=== PATIENT | male | born 1980 | race Caucasian/White ===

== ENCOUNTER 2016-03-15 13:25 | Emergency (ER) | payer OTHER ==
[2016-03-15 13:32] VITALS: O2SAT 97
[2016-03-15] MEDS ORDERED: NS 1,000 ML IV ONE (14:07)
[2016-03-15 14:24] LABS: COLOR YELLOW; LEUKOCYTE ESTERASE,URINE NEGATIVE (NEGATIVE); NITRITE,URINE NEGATIVE (NEGATIVE)
[2016-03-15 14:55] LABS: % IMMATURE GRANULYOCYTES 0.3 % (0.0-1.1); ABSOLUTE IMMATURE GRANULOCYTES 0.03 10^3/uL (0.00-0.10); ADD DIFF? NO; ADD MORPH? NO; ADD SCAN? NO; ATYPICAL LYMPHOCYTE FLAG 0 (0-99); FRAGMENT RBC FLAG 0 (0-99); HEMATOCRIT 45.8 % (40.0-51.0); LEFT SHIFT FLG 0 (0-99); LIPEMIA HEMOLYSIS FLAG 90 (0-99); MEAN CELL HEMOGLOBIN 31.3 pg (27.9-34.1); MEAN CELL HEMOGLOBIN CONCENTR. 34.9 g/dL (32.4-36.7); MEAN CELL VOLUME 89.5 fL (81.5-99.8); PLATELET CLUMPS FLAG 10 (0-99); PLATELET COUNT 228 10^3/uL (150-400); RED BLOOD CELL COUNT 5.12 10^6/uL (4.40-6.38)
[2016-03-15 15:05] LABS: ANION GAP 13 mEq/L (8-16); CALCIUM 9.2 mg/dL (8.5-10.4); CARBON DIOXIDE 26 mEq/l (22-31); CHLORIDE 102 mEq/L (97-110); CREATININE 0.9 mg/dL (0.7-1.3); GLOMERULAR FILTRATION RATE > 60; GLUCOSE 94 mg/dL (70-100); POTASSIUM 4.5 mEq/L (3.5-5.2); SODIUM 141 mEq/L (134-144)
[2016-03-15] MEDS ORDERED: IOPAMIDOL (ISOVUE-300) 50 ML VIAL IV ONE (15:16)
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
[2016-03-15 15:53] VITALS: RESP 18; TEMP 98.6
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
[2016-03-15 17:02] VITALS: BP 116/73; PULSE 83
== END 2016-03-15 17:02 | disposition home or self-care (01) ==
DX: S20.221A Contusion of right back wall of thorax, initial encounter (principal); S40.021A Contusion of right upper arm, initial encounter; S80.11XA Contusion of right lower leg, initial encounter; V28.0XXA Motorcycle driver injured in noncollision transport accident in nontraffic accident, initial encounter; Y92.410 Unspecified street and highway as the place of occurrence of the external cause; Y99.8 Other external cause status; Y93.55 Activity, bike riding
CPT/HCPCS: 82947-QW; Q9967

== ENCOUNTER 2016-10-17 16:47 | Emergency (ER) | payer OTHER ==
[2016-10-17] MEDS ORDERED: NS 1,000 ML IV ONE ×2 (17:24→18:24)
--- NOTE | 2016-10-17 17:24 | EDPHY ---
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 of the great toe distal phalanx. Impression: There is no acute osseous abnormality identified. Findings were discussed with ANGELES PRATHER MD at 19:23, on 10/17/2016. All x-rays reviewed by me and appeared to be normal. No evidence for rib fractures or pneumothorax. There is possibly a chip off the distal phalanx left great toe. Procedures: IV normal saline with initial target [address] rash on his back is clean ED Course/Re-evaluation: Re-evaluation 6:25 p.m. patient is stable. He and I discussed imaging and lab results. We discussed treatment plan including criteria for return importance of follow-up and further evaluation. Patient is unsure whether he can walk. We discussed that he really needs to be able to walk before he can be discharged Re-evaluation 7:35 p.m.. Patient is stable. I push on his distal right fibula but he does not have particular tenderness there. He has swelling and effusion to the left knee. Knee immobilizer is placed on the left leg. Post knee immobilizer evaluation shows good anatomic position and distal motor vascular sensitivity to be intact Patient has known crutches which is brings into the ED. Re-evaluation 8:40 p.m.. Knee immobilizer is on left leg. He is ambulatory with crutches. He feels well to go home. Patient and I discussed imaging and lab results. We discussed treatment plan including criteria for return importance of follow-up and further evaluation. He expresses understanding and agreement Differential Diagnosis: I considered long bone fractures. I suspect that the patient has ligamental injuries to the left knee. No osseous abnormalities however there is a joint effusion. I considered rib fractures and pneumothorax as well - Data Points Laboratory Results: Laboratory Results 10/17/16 17:20 10/17/16 17:20 10/17/16 10/17/16 10/17/16 18:25 17:20 17:20 WBC RBC Hgb Hct MCV MCH MCHC RDW Plt Count MPV Neut % (Auto) Lymph % (Auto) [place] % (Auto) Eos % (Auto) Baso % (Auto) Nucleat RBC Rel Count Absolute Neuts (auto) Absolute Lymphs (auto) Absolute Monos (auto) Absolute Eos (auto) Absolute Basos (auto) Absolute Nucleated RBC Immature Gran % Immature Gran # PT 12.6 SEC SEC (12.0-15.0) INR 0.95 (0.83-1.16) APTT 23.8 SEC SEC (23.0-38.0) Sodium 145 mEq/L H mEq/L (134-144) Potassium 3.9 mEq/L mEq/L (3.5-5.2) Chloride 106 mEq/L mEq/L (97-110) Carbon Dioxide 20 mEq/l L mEq/l (22-31) Anion Gap 19 mEq/L H mEq/L (8-16) BUN 21 mg/dL mg/dL (7-23) Creatinine 1.1 mg/dL mg/dL (0.7-1.3) Estimated GFR > 60 Glucose 80 mg/dL mg/dL (70-100) Calcium 10.5 mg/dL H mg/dL (8.5-10.4) Creatine Kinase 270 IU/L H IU/L (0-224) CK-MB (CK-2) Fraction 1.84 ng/mL ng/mL (0.00-3.19) CK-MB (CK-2) % 0.7 % % (0.0-4.0) Creatine Kinase Interp NEGATIVE (NEGATIVE) 10/17/16 17:20 WBC 13.19 10^3/uL H 10^3/uL (3.80-9.50) RBC 5.22 10^6/uL 10^6/uL (4.40-6.38) Hgb 16.0 g/dL g/dL (13.7-17.5) Hct 46.7 % % (40.0-51.0) MCV 89.5 fL fL (81.5-99.8) MCH 30.7 pg pg (27.9-34.1) MCHC 34.3 g/dL g/dL (32.4-36.7) RDW 12.7 % % (11.5-15.2) Plt Count 270 10^3/uL 10^3/uL (150-400) MPV 10.6 fL fL (8.7-11.7) Neut % (Auto) 76.4 % H % (39.3-74.2) Lymph % (Auto) 15.2 % % (15.0-45.0) [place] % (Auto) 7.4 % % (4.5-13.0) Eos % (Auto) 0.2 % L % (0.6-7.6) Baso % (Auto) 0.4 % % (0.3-1.7) Nucleat RBC Rel Count 0.0 % % (0.0-0.2) Absolute Neuts (auto) 10.09 10^3/uL H 10^3/uL (1.70-6.50) Absolute Lymphs (auto) 2.00 10^3/uL 10^3/uL (1.00-3.00) Absolute Monos (auto) 0.97 10^3/uL H 10^3/uL (0.30-0.80) Absolute Eos (auto) 0.03 10^3/uL 10^3/uL (0.03-0.40) Absolute Basos (auto) 0.05 10^3/uL 10^3/uL (0.02-0.10) Absolute Nucleated RBC 0.00 10^3/uL 10^3/uL (0-0.01) Immature Gran % 0.4 % % (0.0-1.1) Immature Gran # 0.05 10^3/uL 10^3/uL (0.00-0.10) PT INR APTT Sodium Potassium Chloride Carbon Dioxide Anion Gap BUN Creatinine Estimated GFR Glucose Calcium Creatine Kinase CK-MB (CK-2) Fraction CK-MB (CK-2) % Creatine Kinase Interp Medications Given: Discontinued Medications Sodium Chloride (Ns) 1,000 mls @ 0 mls/hr IV ONCE ONE; Wide Open PRN Reason: Protocol Stop: 10/17/16 17:25 Last Admin: 10/17/16 17:51 Dose: 1,000 mls Sodium Chloride (Ns) 1,000 mls @ 0 mls/hr IV EDNOW ONE; Wide Open PRN Reason: Protocol Stop: 10/17/16 18:25 Last Admin: 10/17/16 18:29 Dose: 1,000 mls Ketorolac Tromethamine (Toradol) 30 mg IVP EDNOW ONE Stop: 10/17/16 18:29 Last Admin: 10/17/16 18:34 Dose: 30 mg Departure - Departure Disposition: Home, Routine, Self-Care Clinical Impression: Left knee injury Qualifiers: Encounter type: initial encounter Qualified Code(s): S89.92XA - Unspecified injury of left lower leg, initial encounter Condition: Fair Instructions: Knee Immobilizer (ED), Knee Sprain (ED) Additional Instructions: Ice and elevation especially of left leg next 24-48 hours. Splint and crutches until re-evaluation by orthopedist. Percocet and ibuprofen as needed for discomfort using ibuprofen 600 mg every 6 hours. Return for worsening symptoms. On Wednesday morning call orthopedist to arrange follow-up and further evaluation Referrals: NONE *PRIMARY CARE P,. [Primary Care Provider] - As per Instructions Lino Monaco MD [Medical Doctor] - 2-3 days, call for appt. Prescriptions: oxyCODONE/APAP 5/325 [Percocet 5/325] 1 tab PO Q4-6PRN PRN #14 tab PRN Reason: Pain, Moderate
[2016-10-17 17:35] LABS: % IMMATURE GRANULYOCYTES 0.4 % (0.0-1.1); ABSOLUTE IMMATURE GRANULOCYTES 0.05 10^3/uL (0.00-0.10); ADD DIFF? NO; ADD MORPH? NO; ADD SCAN? NO; ATYPICAL LYMPHOCYTE FLAG 0 (0-99); FRAGMENT RBC FLAG 0 (0-99); HEMATOCRIT 46.7 % (40.0-51.0); LEFT SHIFT FLG 0 (0-99); LIPEMIA HEMOLYSIS FLAG 90 (0-99); MEAN CELL HEMOGLOBIN 30.7 pg (27.9-34.1); MEAN CELL HEMOGLOBIN CONCENTR. 34.3 g/dL (32.4-36.7); MEAN CELL VOLUME 89.5 fL (81.5-99.8); MEAN PLATELET VOLUME 10.6 fL (8.7-11.7); PLATELET CLUMPS FLAG 0 (0-99); PLATELET COUNT 270 10^3/uL (150-400); RED BLOOD CELL COUNT 5.22 10^6/uL (4.40-6.38); RED CELL DISTRIBUTION WIDTH 12.7 % (11.5-15.2)
[2016-10-17 17:51] LABS: ANION GAP 19 mEq/L (8-16); CALCIUM 10.5 mg/dL (8.5-10.4); CARBON DIOXIDE 20 mEq/l (22-31); CHLORIDE 106 mEq/L (97-110); CREATININE 1.1 mg/dL (0.7-1.3); GLOMERULAR FILTRATION RATE > 60; GLUCOSE 80 mg/dL (70-100); POTASSIUM 3.9 mEq/L (3.5-5.2); SODIUM 145 mEq/L (134-144)
[2016-10-17 17:56] LABS: APTT 23.8 SEC (23.0-38.0); INR 0.95 (0.83-1.16); PROTIME(PATIENT) 12.6 SEC (12.0-15.0)
[2016-10-17] MEDS ORDERED: KETOROLAC 30 MG/1 ML SDV IVP ONE (18:28)
[2016-10-17 19:07] VITALS: BP 126/90; PULSE 76; RESP 18; TEMP 98.1; O2SAT 97
[2016-10-17 19:44] LABS: CK-MB INTERPRETATION NEGATIVE (NEGATIVE); CREATINE KINASE-MB FRACTION 1.84 ng/mL (0.00-3.19)
[2016-10-17] MEDS ORDERED: OXYCODONE/APAP 5/325MG PREPACK#4 BTL TAKEHOME ONE (20:44)
[2016-10-17] MEDS ORDERED: HYDROCOD/APAP 5/325 PREPACK#6 BTL TAKEHOME ONE ×2 (20:51→20:53)
== END 2016-10-17 21:05 | disposition home or self-care (01) ==
DX: S89.92XA Unspecified injury of left lower leg, initial encounter (principal); V29.9XXA Motorcycle rider (driver) (passenger) injured in unspecified traffic accident, initial encounter; Y92.410 Unspecified street and highway as the place of occurrence of the external cause; Y99.8 Other external cause status; Y93.89 Activity, other specified
CPT/HCPCS: 96374; J1885; L1830

== ENCOUNTER → 2016-10-26 | Outpatient (CLI) | payer OTHER | LOC: FIMAGING 16:56 | PROVIDERS: ATTEND Orthopaedic Surgery Sports Medicine | DX: M79.89 Other specified soft tissue disorders (principal) ==